=== PATIENT | male | born 1960 | race Caucasian/White ===

== ENCOUNTER 2022-02-26 16:13 | Emergency (ER) | payer OTHER, BC ==
[~2022-02-26] VITALS: Ht 172.7 cm; Wt 83.9 kg
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
[2022-02-26 16:13] VITALS: BP 144/99
[2022-02-26 16:41] LABS: BASOPHIL % 0.5 % (0.0-0.2); EOSINOPHIL # 0.2 10^3/uL (0.0-0.2); EOSINOPHIL % 2.9 % (0.0-5.0); LYMPHOCYTES # 1.59 10^3/uL1 (1.0-4.8); LYMPHOCYTES % 25.2 % (24.0-44.0); MEAN CORP HGB 33.6 pg (26-34); MONOCYTES # 0.8 10^3/uL (0.3-0.8); MONOCYTES % 12.5 % (5.0-12.0); NEUTROPHIL # 3.7 10^3/uL (1.8-7.7); NEUTROPHILS % 58.7 % (41.0-85.0); PLATELET COUNT 262 10^3/uL (150-400); RED CELL DISTRIBUTION WIDTH 13.1 % (11.5-14.5)
[2022-02-26 16:56] LABS: BILIRUBIN,URINE NEGATIVE (NEGATIVE); UROBILINOGEN,URINE 0.2 E.U./dL (0.2)
[2022-02-26 16:58] LABS: CARBON DIOXIDE 25.4 mmol/L (20.0-32)
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
[2022-02-26] MEDS ORDERED: TORADOL ONE (18:04)
[2022-02-26 18:12] VITALS: BP 142/93
[2022-02-26] MEDS ORDERED: TORADOL IV ONE (18:30)
== END 2022-02-26 18:12 | disposition home or self-care (01) ==
LOC: ER 16:13 → EDBD 16:13 → ER 18:12
DX: S39.011A Strain of muscle, fascia and tendon of abdomen, initial encounter (principal); R91.1 Solitary pulmonary nodule; F12.90 Cannabis use, unspecified, uncomplicated; F17.210 Nicotine dependence, cigarettes, uncomplicated; F10.20 Alcohol dependence, uncomplicated; V53.5XXA Driver of pick-up truck or van injured in collision with car, pick-up truck or van in traffic accident, initial encounter; Y93.89 Activity, other specified; Y92.89 Other specified places as the place of occurrence of the external cause; Y99.8 Other external cause status
CPT/HCPCS: 36415; 74177; 80053; 81001; 85025; 96374; 99285; J1885; Q9966